=== PATIENT | female | born 1970 | race Caucasian/White ===

== ENCOUNTER 2017-02-20 16:48 | Outpatient (CLI) | payer OTHER ==
[2017-02-20 17:43] LABS: Hematocrit 39.4 % (36.0-47.0); Mean Platelet Volume 6.4 fL (7.4-10.4); Red Blood Cell (RBC) Count 4.41 mill/uL (4.20-5.40); White Blood Cell (WBC) Count 6.9 thou/uL (4.8-10.8)
--- NOTE | 2017-03-01 21:45 | EKG ---
Test Reason : Blood Pressure : / mmHG Vent. Rate : 068 BPM Atrial Rate : 068 BPM P-R Int : 156 ms QRS Dur : 088 ms QT Int : 384 ms P-R-T Axes : 057 064 022 degrees QTc Int : 408 ms Normal sinus rhythm Low voltage QRS Cannot rule out Anterior infarct , age undetermined Abnormal ECG No previous ECGs available Confirmed by ANSHU NIEVES (2) on 03/01/2017 9:44:37 PM Referred By: OLMAN Confirmed By:ANSHU NIEVES
== END 2017-02-20 16:49 | disposition home or self-care (01) ==
LOC: LABBT 16:48
PROVIDERS: ATTEND Internal Medicine
DX: Z01.812 Encounter for preprocedural laboratory examination (principal); D25.9 Leiomyoma of uterus, unspecified; N92.0 Excessive and frequent menstruation with regular cycle
CPT/HCPCS: 84703; 85027; 86850; 86900; 86901; 93005; 93010

== ENCOUNTER 2017-03-08 11:13 | Outpatient (CLI) | payer OTHER ==
--- NOTE | 2017-03-08 12:20 | MMO ---
BILATERAL DIGITAL SCREENING MAMMOGRAMS: HISTORY: A 46-year-old female presents for digital screening mammography. COMPARISON: 02/25/2016, 02/24/2015, 01/03/2014, 12/10/2012, 12/01/2011 FINDINGS: This patient's mammogram is interpreted with the assistance of computer aided detection. Scattered areas of fibroglandular density are noted bilaterally. There are a few scattered typically benign calcifications. There are some bilateral stable parenchymal dense asymmetries. No direct or indirect evidence of malignancy. IMPRESSION: BI-RADS Category 2: Benign findings. Continue routine screening. POS: MO
== END 2017-03-08 11:14 | disposition home or self-care (01) ==
LOC: SCSMAMMO 11:13
PROVIDERS: ATTEND Obstetrics & Gynecology
DX: Z12.31 Encounter for screening mammogram for malignant neoplasm of breast (principal)
CPT/HCPCS: 77067; G0202

== ENCOUNTER 2018-03-15 15:27 | Outpatient (CLI) | payer OTHER | END 2018-03-15 15:28 | disposition home or self-care (01) | LOC: BICMAMMO 15:27 | PROVIDERS: ATTEND Obstetrics & Gynecology | DX: Z12.31 Encounter for screening mammogram for malignant neoplasm of breast (principal); Z80.3 Family history of malignant neoplasm of breast | CPT/HCPCS: 77063; 77067 ==

== ENCOUNTER 2018-12-07 11:00 | Outpatient (CLI) | payer OTHER ==
--- NOTE | 2018-12-07 12:04 | MRI ---
MRI lumbar spine noncontrast HISTORY: Low back pain with radiculopathy. FINDINGS: Images including the abdomen show a large cystic structure in the right lower quadrant cont aining multiple dependent filling defects.. This has the appearance of gallstones within a dilated gallbladder lumen. Vertebral body heights and AP alignment are maintained. Leftward convex rotatory scoliotic curvature. Prominent discogenic endplate changes throughout the bone marrow. Prominent osteophytosis. Desiccation of the lowest 4 intervertebral discs. Posterior disc protrusion partially visualized at the T10-11 level. T11-T12: Disc space narrowing and posterior disc protrusion. Circumferential degenerative changes. Mi ld stenosis of the central canal and mild to moderate stenosis of each neural foramen. T12-L1: Disc space narrowing. Mild posterior disc bulge. Minimal central canal stenosis. Neural barrie tyler are patent. L1-2: Mild disc bulge. Circumferential degenerative changes. Mild stenosis of the central canal and e ach neural foramen. L2-3: Prominent disc space narrowing. Right posterolateral disc protrusion into the right neural fora men. Focal herniation into the right L2 lateral recess. Significant compression of the ventral aspect of the thecal sac and circumferential degenerative changes. Severe stenosis of the central can al. Severe right and moderate left foraminal stenoses. L3-4: Disc space narrowing. Far left lateral disc protrusion/herniation. Effacement of the thecal sac , greater to the left of midline. Circumferential degenerative changes. Severe stenosis of the central canal. Moderate right and severe left foraminal stenoses. L4-5: Disc space narrowing. Prominent posterior disc protrusion. Circumferential degenerative changes . Very severe stenosis of the central canal. Severe bilateral foraminal stenoses. L5-S1: Mild posterior disc bulge. Circumferential degenerative changes. Moderate stenosis of the cent ral canal. Mild bilateral foraminal stenoses. IMPRESSION: Severe multilevel degenerative changes throughout the lumbar spine and lower thoracic spi ne as detailed above, including extreme central canal and foraminal stenoses. Please consider surgical evaluation. Cholelithiasis.
== END 2018-12-07 11:01 | disposition home or self-care (01) ==
LOC: TBSIIMAG 11:00
PROVIDERS: ATTEND Internal Medicine
DX: M47.26 Other spondylosis with radiculopathy, lumbar region (principal); M47.814 Spondylosis without myelopathy or radiculopathy, thoracic region; M47.817 Spondylosis without myelopathy or radiculopathy, lumbosacral region; M48.061 Spinal stenosis, lumbar region without neurogenic claudication; M48.07 Spinal stenosis, lumbosacral region; M48.04 Spinal stenosis, thoracic region; M48.05 Spinal stenosis, thoracolumbar region; K80.20 Calculus of gallbladder without cholecystitis without obstruction
CPT/HCPCS: 72148

== ENCOUNTER 2018-12-27 08:10 | Outpatient (CLI) | payer OTHER ==
--- NOTE | 2018-12-27 08:56 | ULT ---
US Abdominal HISTORY: Abdominal pain. Gallstones noted on MRI study. COMPARISON: None. FINDINGS: Real-time imaging of the upper abdomen demonstrates a distended gallbladder with gallstones . No gallbladder wall thickening is noted. Technologist reports a negative ultrasound Francis sign.. The visualized liver parenchyma shows a subtle echogenic area measuring the 1 cm range within the rig ht lobe most likely a small hemangioma. The spleen measures 10.4 cm in size. The right and left kidneys are within normal limits of size. There is no evidence of obstruction or m ass. The pancreas, abdominal aorta and IVC regions are normal. IMPRESSION: Distended gallbladder with small gallstones and a normal caliber common duct. Incidental note is made of a small liver hemangioma.
== END 2018-12-27 08:11 | disposition home or self-care (01) ==
LOC: BICULT 08:10
PROVIDERS: ATTEND Internal Medicine
DX: K80.20 Calculus of gallbladder without cholecystitis without obstruction (principal)
CPT/HCPCS: 76700

== ENCOUNTER 2019-03-26 08:20 | Outpatient (CLI) | payer OTHER ==
--- NOTE | 2019-03-26 09:01 | MMO ---
Bilateral MAMMO Bilat Screen [facility]. CLINICAL HISTORY: Patient is 48 years old and is seen for screening. The patient has the following family history of breast cancer: paternal aunt, malignant (generic). The patient has no personal history of cancer. VIEWS: The views performed were: bilateral craniocaudal with tomosynthesis and bilateral mediolateral oblique with tomosynthesis. FILMS COMPARED: The present examination has been compared to prior imaging studies performed at [facility] on 03/08/2017, at [facility] on 03/15/2018, and at [facility] on 02/25/2016 and 03/01/2016. This study has been interpreted with the assistance of computer-aided detection. MAMMOGRAM FINDINGS: There are scattered fibroglandular densities. There are no suspicious masses, suspicious calcifications, or new areas of architectural distortion. IMPRESSION: THERE IS NO MAMMOGRAPHIC EVIDENCE OF MALIGNANCY. A ROUTINE FOLLOW-UP MAMMOGRAM IN 1 YEAR IS RECOMMENDED. THE RESULTS OF THIS EXAM WERE SENT TO THE PATIENT. ACR BI-RADS Category 1 - Negative MAMMOGRAPHY NOTE: 1. A negative mammogram report should not delay a biopsy if a dominant of clinically suspicious mass is present. 2. Approximately 10% to 15% of breast cancers are not detected by mammography. 3. Adenosis and dense breasts may obscure an underlying neoplasm. Reported by: MARYJO ALLEN MD Electonically Signed: [id number]
== END 2019-03-26 08:21 | disposition home or self-care (01) ==
LOC: BICMAMMO 08:20
PROVIDERS: ATTEND Internal Medicine
DX: Z12.31 Encounter for screening mammogram for malignant neoplasm of breast (principal); Z80.3 Family history of malignant neoplasm of breast
CPT/HCPCS: 77063; 77067

== ENCOUNTER 2020-03-27 07:59 | Outpatient (CLI) | payer OTHER ==
--- NOTE | 2020-03-27 09:07 | MMO ---
Bilateral MAMMO Bilat Screen [facility]. CLINICAL HISTORY: Patient is 49 years old and is seen for screening. The patient has the following family history of breast cancer: paternal aunt, malignant (generic). The patient has no personal history of cancer. VIEWS: The views performed were: bilateral mediolateral oblique with tomosynthesis; bilateral craniocaudal with tomosynthesis; bilateral mediolateral oblique; and left craniocaudal. FILMS COMPARED: The present examination has been compared to prior imaging studies performed at [facility] on 03/08/2017, at [facility] on 03/15/2018 and 03/26/2019, and at [facility] on 03/01/2016. This study has been interpreted with the assistance of computer-aided detection. MAMMOGRAM FINDINGS: There are scattered fibroglandular densities. There are no suspicious masses, suspicious calcifications, or new areas of architectural distortion. IMPRESSION: THERE IS NO MAMMOGRAPHIC EVIDENCE OF MALIGNANCY. A ROUTINE FOLLOW-UP MAMMOGRAM IN 1 YEAR IS RECOMMENDED. THE RESULTS OF THIS EXAM WERE SENT TO THE PATIENT. ACR BI-RADS Category 1 - Negative MAMMOGRAPHY NOTE: 1. A negative mammogram report should not delay a biopsy if a dominant of clinically suspicious mass is present. 2. Approximately 10% to 15% of breast cancers are not detected by mammography. 3. Adenosis and dense breasts may obscure an underlying neoplasm. Reported by: NADIRA TREVIZO MD Electonically Signed: [id number]
== END 2020-03-27 08:00 | disposition home or self-care (01) ==
LOC: BICMAMMO 07:59
PROVIDERS: ATTEND Internal Medicine
DX: Z12.31 Encounter for screening mammogram for malignant neoplasm of breast (principal); Z80.3 Family history of malignant neoplasm of breast
CPT/HCPCS: 77063; 77067

== ENCOUNTER 2021-03-29 12:13 | Outpatient (CLI) | payer OTHER | END 2021-03-29 12:14 | disposition home or self-care (01) | LOC: BICMAMMO 12:13 | PROVIDERS: ATTEND Internal Medicine | DX: Z12.31 Encounter for screening mammogram for malignant neoplasm of breast (principal); Z80.3 Family history of malignant neoplasm of breast | CPT/HCPCS: 77063; 77067 ==

== ENCOUNTER 2022-04-21 08:02 | Outpatient (CLI) | payer BC | END 2022-04-21 08:03 | disposition home or self-care (01) | LOC: BICMAMMO 08:02 | PROVIDERS: ATTEND Internal Medicine | DX: Z12.31 Encounter for screening mammogram for malignant neoplasm of breast (principal); Z80.3 Family history of malignant neoplasm of breast | CPT/HCPCS: 77063; 77067 ==

== ENCOUNTER 2024-06-21 08:03 | Outpatient (CLI) | payer BC | END 2024-06-21 08:04 | disposition home or self-care (01) | LOC: BICMAMMO 08:03 | PROVIDERS: ATTEND Internal Medicine | DX: Z12.31 Encounter for screening mammogram for malignant neoplasm of breast (principal); N63.22 Unspecified lump in the left breast, upper inner quadrant; Z80.3 Family history of malignant neoplasm of breast | CPT/HCPCS: 77063; 77067 ==